=== PATIENT | male | born 1985 | race Hispanic/Latino ===

== ENCOUNTER 2020-04-11 08:38 | Emergency (ER) | payer SELFPAY ==
[2020-04-11] MEDS ORDERED: LIDOCAINE 1% MPF 30 ML VIAL ONE (09:17)
--- NOTE | 2020-04-11 09:40 | EDPHYS ---
Physician Documentation [facility] Name: Jovita Orona Age: 34 yrs Sex: Male : 1985 Arrival Date: 04/11/2020 Time: 08:39 Bed 8 Private MD: ED Physician Cade Sarmiento Historical: - Allergies: 04/11 08:43 No Known Allergies; sv - PMHx: 08:43 None; sv - PSHx: 08:43 None; sv - Immunization history:: Adult Immunizations up to date. - Social history:: Smoking status: . Vital Signs: 08:40 BP 151 / 107; Pulse 112; Resp 20; Temp 98.6; Pulse Ox 100% ; Pain 5/10; sv MDM: 08:42 Patient medically screened. 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 Exp: sv 06/11/2021. Lot #: [id number]. } Route: IM; Site: left deltoid; 10:05 Follow up: Response: No adverse reaction sv 09:45 Drug: Cleocin 150 mg Route: PO; sv 10:05 Follow up: Response: No adverse reaction sv Disposition: 04/11/20 09:39 Discharged to Home. Impression: Laceration of deep palmar arch of right hand. - Condition is Stable. - Discharge Instructions: Laceration Care, Adult. - Prescriptions for Cleocin 150 mg Oral Capsule - take 1 capsule by ORAL route every 6 hours for 10 days; 40 capsule. - Medication Reconciliation Form, Thank You Letter, Antibiotic Education, Prescription Opioid Use form. - Follow up: Private Physician; When: Upon discharge from the Emergency Department; Reason: Recheck today's complaints, Continuance of care, Re-evaluation by your physician. - Problem is new. - Symptoms have improved. Addendum: 04/23/2020 16:26 Addendum: HPI: Pt is a 34 year old male that feel on an outstretched hand. Pt states he t w4 fell and injured his right hand. Pt states that he sustained a laceration to the palmar surface of his right hand. Bleeding is controlled with pressure. Pt states he hit his head but did not lose consciousness . Addendum: ROS: Constitutional: negative for fever chills HEENT: negative fo sore throat neck pain Neck: negative for pain injury Ext:positive e for injury right hand, laceration. All other systems negative except as marked. Addendum: PE: General: well developed well nourished male in NAD Head: contusion posterior scalp. Ext: 5cm laceration right hand palmar surface, good ROM neurovascular intact. Addendum: Procedure: suture repair 5cm laceration right hand palmar surface sterile technique , Betadine , copiously irrigated with NS repaird using 3-0 prolene 3 sutures pt tolerated procedure well. Signatures: Tosha Foote RN RN Cade Carver MD MD tw4 Corrections: (The following items were deleted from the chart) 04/11 10:06 09:39 04/11/2020 09:39 Discharged to Home. Impression: Laceration of deep palmar arch sv of right hand. Condition is Stable. Forms are Medication Reconciliation Form, Thank You Letter, Antibiotic Education, Prescription Opioid Use. Follow up: Private Physician; When: Upon discharge from the Emergency Department; Reason: Recheck today's complaints, Continuance of care, Re-evaluation by your physician. Problem is new. Symptoms have improved. tw4
--- NOTE | 2020-04-11 09:40 | ER ---
Nurse's Notes [facility] Name: Jovita Orona Age: 34 yrs Sex: Male : 1985 Arrival Date: 04/11/2020 Time: 08:39 Bed 8 Private MD: Diagnosis: Laceration of deep palmar arch of right hand Presentation: 04/11 08:40 Chief complaint: EMS states: slipped and fell at work and landed on his right hand, has sv laceration. Site covered at this time. Hit the back of his head with no LOC. Coronavirus screen: Client denies travel out of the [place] in the last 14 days. At this time, the client does not indicate any symptoms associated with coronavirus-19. Ebola Screen: No symptoms or risks identified at this time. Complicating Factors: The patient fell landing on an outstretched hand. Initial Sepsis Screen: Does the patient meet any 2 criteria? No. Patient's initial sepsis screen is negative. Does the patient have a suspected source of infection? No. Patient's initial sepsis screen is negative. Risk Assessment: Do you want to hurt yourself or someone else? Patient reports no desire to harm self or others. Onset of symptoms was April 11, 2020. 08:40 Method Of Arrival: EMS: [facility] sv 08:40 Acuity: JOHNIE 3 sv Triage Assessment: 08:43 General: Appears in no apparent distress. comfortable, well groomed, well developed, sv Behavior is calm, cooperative, appropriate for age. Pain: Complains of pain in right hand. Neuro: Level of Consciousness is awake, alert, obeys commands, Oriented to person, place, time, situation, Moves all extremities. Full function Gait is steady. Respiratory: Respiratory effort is even, unlabored, Respiratory pattern is regular, symmetrical. Derm: Skin is intact, Skin is pink, warm \T\ dry. Musculoskeletal: Range of motion: intact in all extremities. Injury Description: Laceration sustained to right hand. Historical: - Allergies: 08:43 No Known Allergies; sv - PMHx: 08:43 None; sv - PSHx: 08:43 None; sv - Immunization history:: Adult Immunizations up to date. - Social history:: Smoking status: . Screenin:44 Abuse screen: Denies threats or abuse. Denies injuries from another. Nutritional sv screening: No deficits noted. Tuberculosis screening: No symptoms or risk factors identified. Fall Risk None identified. Assessment: 09:07 Injury Description: Laceration sustained to heel of right hand is contaminated, 2.6 to sv 7.5 cm long, not bleeding, is bleeding a small amount. Vital Signs: 08:40 BP 151 / 107; Pulse 112; Resp 20; Temp 98.6; Pulse Ox 100% ; Pain 5/10; sv ED Course: 08:39 Patient arrived in ED. sv 08:40 Tosha Foote RN is Primary Nurse. sv 08:42 Cade Sarmiento MD is Attending Physician. tw4 08:43 Triage completed. sv 08:43 Arm band placed on. sv 08:44 ED physician to see patient. sv 08:44 Patient has correct armband on for positive identification. Bed in low position. Call sv light in reach. Pulse ox on. NIBP on. Door closed. Head of bed elevated. 09:07 Assist provider with laceration repair Set up tray. sv 09:30 Assist provider with laceration repair on heel of right hand that was between 2.6 to sv 7.5 cm using sutures. Performed by Cade Sarmiento MD Dressed with band aid, Neosporin, Patient tolerated well. 10:06 Patient did not have IV access during this emergency room visit. 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 Exp: sv 06/11/2021. Lot #: [id number]. } Route: IM; Site: left deltoid; 10:05 Follow up: Response: No adverse reaction sv 09:45 Drug: Cleocin 150 mg Route: PO; sv 10:05 Follow up: Response: No adverse reaction sv Outcome: 09:39 Discharge ordered by . tw4 10:06 Discharged to home ambulatory. sv 10:06 Condition: stable 10:06 Condition: improved 10:06 Discharge instructions given to patient, Instructed on discharge instructions, follow up and referral plans. medication usage, wound care, Demonstrated understanding of instructions, follow-up care, medications, wound care, Prescriptions given X 1. 10:06 Patient left the ED. sv Signatures: Tosha Foote, RN RN sv Cade Sarmiento MD MD tw4
[2020-04-11] MEDS ORDERED: TETANUS & DIPHTHERIA TOX,ADULT 0.5 ML VIAL ONE (09:59)
[2020-04-11 10:10] VITALS: BP 151/107; TEMP 98.6; O2SAT 100
== END 2020-04-11 10:06 | disposition home or self-care (01) ==
LOC: ER 08:38
PROC: 0JQJ0ZZ Repair Right Hand Subcutaneous Tissue and Fascia, Open Approach (ICD-10-PCS; principal; 2020-04-11)
DX: S61.411A Laceration without foreign body of right hand, initial encounter (principal); W01.0XXA Fall on same level from slipping, tripping and stumbling without subsequent striking against object, initial encounter; Y93.89 Activity, other specified; Y92.89 Other specified places as the place of occurrence of the external cause
CPT/HCPCS: 90471; 90714; 99284